=== PATIENT | female | born 1965 | race African-American/Black ===

== ENCOUNTER 2017-03-20 09:36 | Emergency (ER) | payer BC ==
[~2017-03-20] VITALS: Ht 172.7 cm; Wt 100.7 kg
[2017-03-20] MEDS ORDERED: PHENERGAN-CODE120 ML PO (10:25)
[2017-03-20 11:00] VITALS: BP 127/70
== END 2017-03-20 11:06 | disposition home or self-care (01) ==
LOC: EME 09:36
DX: J04.0 Acute laryngitis (principal); F17.200 Nicotine dependence, unspecified, uncomplicated
CPT/HCPCS: 99281; 99283; J1100